=== PATIENT | male | born 1965 | race Caucasian/White ===

== ENCOUNTER 2017-04-23 17:12 | Emergency (ER) | payer OTHER ==
[~2017-04-23] VITALS: Ht 190.5 cm; Wt 108.9 kg
[~2017-04-23 17:12] MED LIST: CIPR500 PO; Esgic Tablet1 EACH PO; Flagyl500 MG PO; LISI20 PO
[2017-04-23 17:40] LABS: BASOPHILS ABSOLUTE AUTO 0.06 K/mm3 (0.00-0.23); BASOPHILS PERCENT AUTO 1 % (0-2); EOSINOPHILS ABSOLUTE AUTO 0.57 K/mm3 (0.00-0.68); EOSINOPHILS PERCENT AUTO 7 % (0-6); Hematocrit 47.4 % (37.0-53.0); Hemoglobin 17.1 g/dL (13.5-17.5); IMMATURE GRAN ABSOLUTE AUTO 0.04 K/mm3 (0.00-0.10); IMMATURE GRAN PERCENT AUTO 1 % (0-1); LYMPHOCYTES PERCENT AUTO 31 % (21-46); MONOCYTES PERCENT AUTO 7 % (4-13); Mean Corpuscular HGB 33.5 pg (26.0-34.0); Mean Corpuscular HGB Conc 36.1 g/dL (31.5-36.5); Mean Corpuscular Volume 93 fL (80-100); Mean Platelet Volume 9.4 fL (9.1-12.4); NEUTROPHILS ABSOLUTE AUTO 4.45 K/mm3 (1.96-9.15); NEUTROPHILS PERCENT AUTO 53 % (41-73); Platelet Count 198 K/mm3 (150-400); RDW Coefficient Variation 12.6 % (11.7-14.2); RDW Standard Deviation 43.1 fL (35.1-46.3); White Blood Cell Count 8.32 K/mm3 (4.00-11.30)
[2017-04-23 18:00] LABS: Alanine Aminotransfer (ALT/SGP 32 U/L (12-78); Albumin, Blood 3.9 g/dL (3.4-5.0); Alk Phos 71 U/L (50-136); Anion Gap 9 mmol/L (6-16); Aspartate Aminotrans (AST/SGOT 24 U/L (12-37); Bilirubin, Total 1.1 mg/dL (0.1-1.0); Blood Urea Nitrogen 19 mg/dL (8-24); CO2, Blood 23 mmol/L (21-32); Calcium, Blood 9.2 mg/dL (8.5-10.1); Chloride, Blood 106 mmol/L (98-108); Creatinine, Blood 1.19 mg/dL (0.60-1.20); Globulin, Blood 3.8 g/dL (2.2-4.0); Glomerular Filtration Rate >60 (60-); Glucose, Blood 90 mg/dL (70-99); Potassium, Blood 3.8 mmol/L (3.5-5.5); Sodium, Blood 138 mmol/L (136-145); Total Protein, Blood 7.7 g/dL (6.4-8.2)
[2017-04-23 18:01] LABS: Prothrombin Time Results 10.4 Sec (9.7-11.5)
[2017-04-23 18:04] LABS: Ethanol (Alcohol), Blood, Med <3 mg/dL; Magnesium, Blood 2.2 mg/dL (1.6-2.4)
== END 2017-04-23 20:10 | disposition home or self-care (01) ==
LOC: ER 17:12
PROVIDERS: Emergency Medicine
DX: S00.83XA Contusion of other part of head, initial encounter (principal); R07.89 Other chest pain; I10 Essential (primary) hypertension; Z79.899 Other long term (current) drug therapy; V49.3XXA Car occupant (driver) (passenger) injured in unspecified nontraffic accident, initial encounter
CPT/HCPCS: 70450; 71045; 71260; 72125; 74177; 80053; 83735; 85025; 85610; 86850; 86900; 86901; 93005; 93010; 96374; 96376; 99284; G0480; J3010; Q9967

== ENCOUNTER → 2017-12-06 | Outpatient (CLI) | payer OTHER ==
[2017-12-06 12:41] LABS: BASOPHILS ABSOLUTE AUTO 0.04 K/mm3 (0.00-0.23); BASOPHILS PERCENT AUTO 1 % (0-2); EOSINOPHILS ABSOLUTE AUTO 0.22 K/mm3 (0.00-0.68); EOSINOPHILS PERCENT AUTO 3 % (0-6); Hemoglobin 12.8 g/dL (13.5-17.5); IMMATURE GRAN ABSOLUTE AUTO 0.03 K/mm3 (0.00-0.10); IMMATURE GRAN PERCENT AUTO 1 % (0-1); LYMPHOCYTES ABSOLUTE AUTO 1.24 K/mm3 (0.84-5.20); LYMPHOCYTES PERCENT AUTO 19 % (21-46); MONOCYTES ABSOLUTE AUTO 0.45 K/mm3 (0.16-1.47); MONOCYTES PERCENT AUTO 7 % (4-13); Mean Corpuscular HGB 30.4 pg (26.0-34.0); Mean Corpuscular Volume 95 fL (80-100); Mean Platelet Volume 9.1 fL (9.1-12.4); NEUTROPHILS PERCENT AUTO 69 % (41-73); Platelet Count 395 K/mm3 (150-400); RDW Coefficient Variation 12.2 % (11.7-14.2); RDW Standard Deviation 42.6 fL (35.1-46.3); Red Blood Cell Count 4.21 M/mm3 (4.30-5.90); White Blood Cell Count 6.38 K/mm3 (4.00-11.30)
[2017-12-06 13:04] LABS: Alanine Aminotransfer (ALT/SGP 37 U/L (12-78); Albumin/Globulin Ratio 0.7 (0.8-1.8); Alk Phos 111 U/L (50-136); Anion Gap 8 mmol/L (6-16); Aspartate Aminotrans (AST/SGOT 30 U/L (12-37); Bilirubin, Total 0.5 mg/dL (0.1-1.0); Blood Urea Nitrogen 17 mg/dL (8-24); CO2, Blood 28 mmol/L (21-32); Calcium, Blood 9.2 mg/dL (8.5-10.1); Chloride, Blood 103 mmol/L (98-108); Creatinine, Blood 0.81 mg/dL (0.60-1.20); Globulin, Blood 4.1 g/dL (2.2-4.0); Glomerular Filtration Rate >60 (60-); Glucose, Blood 98 mg/dL (70-99); Potassium, Blood 3.9 mmol/L (3.5-5.5); Sodium, Blood 139 mmol/L (136-145); Total Protein, Blood 7.1 g/dL (6.4-8.2)
== END ==
LOC: LAB 12:17 → LAB SHORT 12:17
PROVIDERS: Physician Assistant
DX: R60.9 Edema, unspecified (principal)
CPT/HCPCS: 80053; 85025

== ENCOUNTER 2018-10-10 09:23 | Day surgery (SDC) | payer OTHER ==
[~2018-10-10] VITALS: Ht 177.8 cm; Wt 104.0 kg
[~2018-10-10 09:23] MED LIST changes: +ACET500 PO; +BACL10 PO; +GABA600 PO
--- NOTE | 2018-10-10 10:03 | NUR ---
PT ADMITTED TO [facility]. AGREES WITH PLANNED PROCEDURE. TOLERATED BOWEL PREP AND STATES HAVING BRIGHT RED BLOOD RED THIS AM.
--- NOTE | 2018-10-10 10:07 | NUR ---
LUNG SOUNDS CLEAR.
--- NOTE | 2018-10-10 10:21 | NUR ---
10/10/18 [email or web address] Megan Acuna History, Chart, Medications and Allergies reviewed before start of procedure. Patient confirms NPO status and agrees with scheduled surgery. PATIENT DETERMINED TO BE ASA APPROPRIATE FOR PROPOFOL SEDATION PRIOR TO START OF PROCEDURE BY DR. ARZATE. 3-LEAD EKG REVIEWED WITH PHYSICIAN PRIOR TO START OF PROCEDURE. MONITOR INTACT WITH CONTINUOUS PULSE OXIMETRY AND INTERMITTENT BP.
--- NOTE | 2018-10-10 10:47 | NUR ---
PT TO DURAN. CORI, WAKES TO VOICE. STATES MILF ABD PAIN. ADVISED TO PASS AIR IF ABLE.
--- NOTE | 2018-10-10 11:04 | NUR ---
WRITTEN AND VERBAL D/C INSTUCTIONS GIVEN TO PT WITH STATED UNDERSTANDING.
== END 2018-10-10 22:37 | disposition home or self-care (01) ==
LOC: ORSCMMR 09:23 → ORD 10:30 → ORSCMMR 10:30
PROVIDERS: Internal Medicine Gastroenterology
PROC: 0DJD8ZZ Inspection of Lower Intestinal Tract, Via Natural or Artificial Opening Endoscopic (ICD-10-PCS; principal; 2018-10-10 10:30)
DX: K62.5 Hemorrhage of anus and rectum (principal); K57.30 Diverticulosis of large intestine without perforation or abscess without bleeding; Z79.899 Other long term (current) drug therapy
CPT/HCPCS: 88300; J2704; J7120

== ENCOUNTER 2018-11-08 06:19 | Day surgery (SDC) | payer OTHER ==
[~2018-11-08] VITALS: Ht 177.8 cm; Wt 97.7 kg
[2018-11-08] MEDS ORDERED: Prinivil10 MG PO (06:44)
[2018-11-08] MEDS ORDERED: CLARITIN10 MG PO (06:45)
--- NOTE | 2018-11-08 08:20 | NUR ---
11/08/18 0820 Salvatore Lyn A RASH NOTED ON PT'S LEFT WRIST BEFORE PREP. SKIN INTACT.
--- NOTE | 2018-11-08 09:36 | NUR ---
11/08/18 0936 Genia Mcgregor PT ABLE TO SQUEEZE BOTH HANDS. PT TAKES DEEP BREATHS WHEN PROMPTED. PT OPENS EYES, MOANS TO VOICE COMMANDS. JAW THRUST PRN ON ARRIVAL TO PACU. STILL REQUIRING SUPPLEMENTAL OXYGEN.
--- NOTE | 2018-11-08 10:13 | NUR ---
11/08/18 1013 Genia Mcgregor 3 PERSON TRANSFER INTO RECLINER WITH GAIT BELT. AFTER TRANSFER, PT C/O NAUSEA. PT GIVEN ZOFRAN PER ORDERS. PT STATES "IT HELPED." PT C/O 8/10 PAIN IN LEFT SHOULDER. PT MEDICATED WITH FENTANYL PER ORDERS IN SDU. WILL MEDICATE WITH PO MEDS ONCE PT EATS CRACKERS. TOLERATING PO FLUIDS WELL. GIRLFIRIEND AND DAUGHTER AT BEDSIDE. POLAR PACK AND ELEVATION IMPLEMENTED.
== END 2018-11-08 11:14 | disposition home or self-care (01) ==
LOC: ORSCSDS 06:19
PROVIDERS: Orthopaedic Surgery
PROC: 0RNK4ZZ Release Left Shoulder Joint, Percutaneous Endoscopic Approach (ICD-10-PCS; principal; 2018-11-08 07:30)
PROC: 0PBB4ZZ Excision of Left Clavicle, Percutaneous Endoscopic Approach (ICD-10-PCS; principal; 2018-11-08 07:30)
PROC: 0LQ24ZZ Repair Left Shoulder Tendon, Percutaneous Endoscopic Approach (ICD-10-PCS; principal; 2018-11-08 07:30)
DX: M75.112 Incomplete rotator cuff tear or rupture of left shoulder, not specified as traumatic (principal); M75.42 Impingement syndrome of left shoulder; M19.012 Primary osteoarthritis, left shoulder; G82.20 Paraplegia, unspecified; N31.9 Neuromuscular dysfunction of bladder, unspecified; Z79.899 Other long term (current) drug therapy; Z87.891 Personal history of nicotine dependence
CPT/HCPCS: A9270-GY; C1713; J0171; J0690; J1100; J1885; J2250; J2370; J2405; J2704; J2795; J3010; J7120

== ENCOUNTER → 2018-12-05 | Outpatient (CLI) | payer OTHER ==
[~2018-12-05] MED LIST changes: +CLARITIN10 MG PO; +MINO50 PO; +NAPR220 PO; +OXYC5 PO; +Percocet 5-3251 EACH PO; +Prinivil10 MG PO
[2018-12-05 15:32] LABS: Automated BF RBC Count 1.711 M/mm3 (0-0); Automated BF WBC Count 2.515 K/mm3 (0-999); Body Fluid WBC Count 2515 /mm3 (0-999); RBC Count, Body Fluid 1711000 /mm3 (0-0)
[2018-12-05 15:37] LABS: Body Fluid Crystals NEG (NEGATIVE)
[2018-12-05 17:06] LABS: Appearance, Body Fluid Bloody (Clear); Color, Body Fluid Red (None-Yellow); Total Cell Count, Body Fluid 100
== END | disposition home or self-care (01) ==
LOC: LAB 15:05 → LAB SHORT 15:05
PROVIDERS: Orthopaedic Surgery
DX: M25.512 Pain in left shoulder (principal)
CPT/HCPCS: 87070; 87075; 87076; 87205; 89051; 89060

== ENCOUNTER 2018-12-11 14:15 | Emergency (ER) | payer OTHER ==
[~2018-12-11] VITALS: Ht 170.2 cm; Wt 102.1 kg
[~2018-12-11 14:15] MED LIST changes: -MINO50 PO; -NAPR220 PO; -OXYC5 PO; -Percocet 5-3251 EACH PO
[2018-12-11] MEDS ORDERED: Percocet 5-3251 EACH PO ×2 (14:51→14:53)
== END 2018-12-11 15:47 | disposition home or self-care (01) ==
LOC: ER 14:15
DX: S40.012A Contusion of left shoulder, initial encounter (principal); L08.9 Local infection of the skin and subcutaneous tissue, unspecified; X58.XXXA Exposure to other specified factors, initial encounter; Z88.5 Allergy status to narcotic agent; Z88.8 Allergy status to other drugs, medicaments and biological substances; Z79.899 Other long term (current) drug therapy
CPT/HCPCS: 96365; 96375; 99281-25; 99282-25; J0171; J0694; J3010

== ENCOUNTER 2018-12-12 03:07 | Inpatient (IN) | payer OTHER ==
[~2018-12-12] VITALS: Ht 170.2 cm; Wt 102.1 kg
[~2018-12-12 03:07] MED LIST changes: +Percocet 5-3251 EACH PO
[2018-12-12 03:21] LABS: BASOPHILS PERCENT AUTO 2 % (0-2); EOSINOPHILS ABSOLUTE AUTO 0.44 K/mm3 (0.00-0.68); EOSINOPHILS PERCENT AUTO 6 % (0-6); Hematocrit 49.2 % (37.0-53.0); Hemoglobin 16.8 g/dL (13.5-17.5); IMMATURE GRAN ABSOLUTE AUTO 0.04 K/mm3 (0.00-0.10); IMMATURE GRAN PERCENT AUTO 1 % (0-1); LYMPHOCYTES ABSOLUTE AUTO 2.09 K/mm3 (0.84-5.20); LYMPHOCYTES PERCENT AUTO 30 % (21-46); MONOCYTES ABSOLUTE AUTO 0.43 K/mm3 (0.16-1.47); MONOCYTES PERCENT AUTO 6 % (4-13); Mean Corpuscular HGB 33.9 pg (26.0-34.0); Mean Corpuscular HGB Conc 34.1 g/dL (31.5-36.5); Mean Corpuscular Volume 99 fL (80-100); Mean Platelet Volume 8.8 fL (9.1-12.4); NEUTROPHILS ABSOLUTE AUTO 3.78 K/mm3 (1.96-9.15); NEUTROPHILS PERCENT AUTO 55 % (41-73); Platelet Count 215 K/mm3 (150-400); RDW Coefficient Variation 12.2 % (11.7-14.2); RDW Standard Deviation 45.1 fL (35.1-46.3); Red Blood Cell Count 4.95 M/mm3 (4.30-5.90); White Blood Cell Count 6.88 K/mm3 (4.00-11.30)
[2018-12-12 03:36] LABS: International Normalized Ratio 0.92; Prothrombin Time Results 9.8 Sec (9.7-11.5)
[2018-12-12 03:43] LABS: Alanine Aminotransfer (ALT/SGP 28 U/L (12-78); Albumin, Blood 3.6 g/dL (3.4-5.0); Albumin/Globulin Ratio 0.9 (0.8-1.8); Alk Phos 79 U/L (50-136); Anion Gap 6 mmol/L (6-16); Aspartate Aminotrans (AST/SGOT 17 U/L (12-37); Bilirubin, Total 0.7 mg/dL (0.1-1.0); Blood Urea Nitrogen 21 mg/dL (8-24); CO2, Blood 28 mmol/L (21-32); Calcium, Blood 8.9 mg/dL (8.5-10.1); Chloride, Blood 107 mmol/L (98-108); Creatinine, Blood 0.88 mg/dL (0.60-1.20); Globulin, Blood 3.8 g/dL (2.2-4.0); Glomerular Filtration Rate >60 (60-); Glucose, Blood 89 mg/dL (70-99); Magnesium, Blood 2.3 mg/dL (1.6-2.4); Potassium, Blood 4.2 mmol/L (3.5-5.5); Sodium, Blood 141 mmol/L (136-145); Total Protein, Blood 7.4 g/dL (6.4-8.2)
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
--- NOTE | 2018-12-12 12:23 | NUR ---
PATIENT SELF STRAIGHT CATHING PRESURGICALLY.
--- NOTE | 2018-12-12 12:37 | NUR ---
PT LEFT ROOM TO GO TO OR AT 1147
--- NOTE | 2018-12-12 14:57 | NUR ---
12/12/18 1457 Praful Rucker PT ON SCHEDULED ANTIBIOTICS AND RECIEVED PRIOR TO ARRIVAL TO OR.
--- NOTE | 2018-12-12 17:30 | NUR ---
SHIFT SUMMARY PT A&OX4, VSS, S/P I&D RIGHT SHOULDER, 2 BULKY DRESSINGS CDI. PAIN MANAGED PER EMAR; GIVEN WITH BENADRYL TO MANAGE ITCHING. TOM PO, DENIES N&V. HX PARAPLEGIA; PT SELF CATHS. ABX INFUSING SCHEDULED. WCTM & TX PER EMAR UNTIL REPORT GIVEN TO ONCOMING NOC RN.
--- NOTE | 2018-12-13 08:10 | NUR ---
SUMMARY: POD 1 LEFT SHOULDER I&D WITH CLEANOUT BY DRL. OLSON. VSS, HYPOTENSIVE AT TIMES AND LISINOPRIL HELD. DENIES PAIN THIS SHIFT, LEFT SHOULDER BLOCK PT HAS MOVEMENT IN HAND BUT NOT ALL OF ARM WITH NUMBNESS IN SHOULDER. SELF CATH WITH GOOD URINE OUTPUT; NEW IV FOR ANTIBIOTIC INFUSIONS. TOLERATING PO WELL AND S/O REMAINS AT BEDSIDE ATTENTIVE AND HELPFUL WITH TO CARE.
--- NOTE | 2018-12-13 16:48 | NUR ---
SHIFT SUMMARY NO ACUTE CHANGES THIS SHIFT. PT REPORTS SENSATION TO LEFT SHOULDER AND IS ABLE TO MOVE IT NOW. CAP REFILL WNL AND PT DENIES N/T. DRESSINGS TO LEFT SHOULDER REMAIN CDI. PT REPORTS 2/10 PAIN WITH NO MOVEMENT BUT REPORTS 8/10 PAIN WITH MOVEMENT OF THAT LEFT SHOULDER. ATTEMPTED ORAL PAIN MEDICATION AND PT DENIES EFFECTIVENESS. PT IS ALSO HESISTANT TO TAKE NARCOTICS AT BASELINE. PLANNING TO CALL DR. OLSON TO GET ORDERS CHANGED. PT SELF CATHS AT BASELINE AND HAS OWN CATH SUPPLIES. PT ALSO BROUGHT IN PERSONAL W/C AND SLIDER BOARD TO GET OOB. PHYSICAL THERAPY EVAL CURRENTLY IN PROGRESS FOR ROM AND STRETCHING TO BLE R/T TO PARAPLEGIA. PT SIG OTHER AT BEDSIDE FOR SUPPORT. PT USES CALL LIGHT APPROPRIATELY.
--- NOTE | 2018-12-14 05:44 | NUR ---
SHIFT SUMMARY: PT POD #2 FOR I&D OF LEFT SHOULDER. DRESSINGS TO SHOULDER CDI. PAIN MANAGED WITH 2 OXY PER EMAR. GIVEN 25MCG OF FENTANYL ONCE. PT ALSO GIVEN ICE PACK. PT REPORTS ITCHINESS AFTER PAIN MEDICATION. GIVEN BENADRYL PER EMAR. SALINE LOCKED EXCEPT FOR ABX. PT TOM REG DIET. DENIES N/V. PT SELF CATHING WITH OWN SUPPLIES. ADEQUATE URINE OUTPUT. URINE CLEAR AND YELLOW. PT TRANFERED FROM BED TO WHEELCHAIR USING SLIDER BOARD. MODERATE 2 PERSON ASSIST. S/O AT BEDSIDE AND IS ACTIVE IN CARE.
--- NOTE | 2018-12-14 07:34 | NUR ---
pt req some iv pain meds for breakthru pain 11/26 to shoulder pt also re to see the dr bello gardiner today has questions will call the office when open also ok pt to take home sahara
--- NOTE | 2018-12-14 09:25 | NUR ---
PT TRANSPORTED TO DAY SURG VIA [facility]
--- NOTE | 2018-12-14 12:13 | NUR ---
dr gonzales by to see pt
[2018-12-14] MEDS ORDERED: MINO50 PO (12:20)
[2018-12-14] MEDS ORDERED: OXYC5 PO (12:21)
[2018-12-14] MEDS ORDERED: NAPR220 PO (12:21)
--- NOTE | 2018-12-14 14:17 | NUR ---
pt waiting for his
--- NOTE | 2018-12-14 15:12 | NUR ---
discharge instructions reviewed with pt and supplies given for dressing wc to car with
== END 2018-12-14 18:00 | disposition home or self-care (01) | DRG 863 ==
LOC: ER 03:07 → SURS 04:59 → ER 04:59 → SURS 05:00
PROVIDERS: Emergency Medicine; Orthopaedic Surgery; ADMIT Orthopaedic Surgery
PROC: 0R9K4ZX Drainage of Left Shoulder Joint, Percutaneous Endoscopic Approach, Diagnostic (ICD-10-PCS; principal; 2018-12-12 14:00)
PROC: 3E1U38Z Irrigation of Joints using Irrigating Substance, Percutaneous Approach (ICD-10-PCS; 2018-12-12 14:00)
DX: T81.49XA Infection following a procedure, other surgical site, initial encounter (principal); G82.20 Paraplegia, unspecified; Z90.49 Acquired absence of other specified parts of digestive tract; F17.290 Nicotine dependence, other tobacco product, uncomplicated; B96.89 Other specified bacterial agents as the cause of diseases classified elsewhere
CPT/HCPCS: 36415; 80053; 83605; 83735; 84145; 85025; 85610; 85651; 85730; 86140; 87040; 87070; 87071; 87075; 87077; 87186; 87205; 93005; 93010; 96365; 96375; 97110; 97162; 99284-25; J0171; J0694; J1170; J1200; J1885; J2370; J2405; J2540; J2704; J3010; J7030; J7120

== ENCOUNTER → 2019-06-20 | Outpatient (CLI) | payer OTHER ==
[~2019-06-20] MED LIST changes: +MINO50 PO; +NAPR220 PO; +OXYC5 PO
== END | disposition home or self-care (01) ==
LOC: LAB SHORT 14:17 → LAB 14:17
DX: R30.0 Dysuria (principal)
CPT/HCPCS: 87077; 87086; 87186

== ENCOUNTER → 2019-06-29 | Outpatient (CLI) | payer OTHER ==
[2019-06-29 15:25] LABS: Source, Urine Catheter
[2019-06-29 17:13] LABS: Bilirubin, Urine Neg (Neg); Blood, Urine Neg (Neg); Glucose Qualitative, Urine Neg (Neg); Ketones, Urine Neg (Neg); Leukocyte Esterase, Urine Neg (Neg); Nitrite, Urine Neg (Neg); Protein, Urine Neg (Neg); Urobilinogen, Urine NORM (Normal)
[2019-06-29 17:21] LABS: Appearance, Urine Clear (Clear); Color, Urine Yellow (P-Yellow)
== END | disposition home or self-care (01) ==
LOC: LAB 15:21 → LAB SHORT 15:21 → LAB FUT 06-27 17:45 → EDSTATUS 06-27 17:45
PROVIDERS: Urology
DX: N39.0 Urinary tract infection, site not specified (principal)
CPT/HCPCS: 81003; 87086

== ENCOUNTER 2019-10-27 22:40 | Emergency (ER) | payer OTHER ==
[~2019-10-27] VITALS: Ht 177.8 cm; Wt 108.9 kg
[~2019-10-27 22:40] MED LIST changes: +BACL10; +Loratadine10 MG; +OMEP20ER; +Oxybutynin Chlo15 MG PO
[2019-10-27 23:21] LABS: BASOPHILS ABSOLUTE AUTO 0.13 K/mm3 (0.00-0.23); BASOPHILS PERCENT AUTO 2 % (0-2); EOSINOPHILS ABSOLUTE AUTO 0.68 K/mm3 (0.00-0.68); EOSINOPHILS PERCENT AUTO 8 % (0-6); Hematocrit 51.2 % (37.0-53.0); Hemoglobin 17.1 g/dL (13.5-17.5); IMMATURE GRAN ABSOLUTE AUTO 0.04 K/mm3 (0.00-0.10); IMMATURE GRAN PERCENT AUTO 0 % (0-1); LYMPHOCYTES ABSOLUTE AUTO 2.22 K/mm3 (0.84-5.20); LYMPHOCYTES PERCENT AUTO 25 % (21-46); MONOCYTES ABSOLUTE AUTO 0.62 K/mm3 (0.16-1.47); MONOCYTES PERCENT AUTO 7 % (4-13); Mean Corpuscular HGB 31.7 pg (26.0-34.0); Mean Corpuscular HGB Conc 33.4 g/dL (31.5-36.5); Mean Corpuscular Volume 95 fL (80-100); Mean Platelet Volume 9.1 fL (9.1-12.4); NEUTROPHILS ABSOLUTE AUTO 5.21 K/mm3 (1.96-9.15); NEUTROPHILS PERCENT AUTO 59 % (41-73); Platelet Count 241 K/mm3 (150-400); RDW Coefficient Variation 12.6 % (11.7-14.2); RDW Standard Deviation 44.3 fL (35.1-46.3); Red Blood Cell Count 5.39 M/mm3 (4.30-5.90)
[2019-10-27 23:40] LABS: Alanine Aminotransfer (ALT/SGP 34 U/L (12-78); Albumin, Blood 3.7 g/dL (3.4-5.0); Albumin/Globulin Ratio 0.9 (0.8-1.8); Alk Phos 79 U/L (50-136); Anion Gap 6 mmol/L (6-16); Aspartate Aminotrans (AST/SGOT 18 U/L (12-37); Bilirubin, Total 0.6 mg/dL (0.1-1.0); Blood Urea Nitrogen 21 mg/dL (8-24); Bun/Creatinine Ratio 18.3 (12.0-20.0); CO2, Blood 26 mmol/L (21-32); Calcium, Blood 8.8 mg/dL (8.5-10.1); Chloride, Blood 108 mmol/L (98-108); Creatinine, Blood 1.15 mg/dL (0.60-1.20); Glomerular Filtration Rate >60 (60-); Glucose, Blood 119 mg/dL (70-99); Potassium, Blood 3.9 mmol/L (3.5-5.5); Sodium, Blood 140 mmol/L (136-145); Total Protein, Blood 7.7 g/dL (6.4-8.2)
[2019-10-27] MEDS ORDERED: Bactrim Ds Tab1 EACH PO (23:48)
== END 2019-10-28 | disposition home or self-care (01) ==
LOC: ER 22:40
PROVIDERS: Emergency Medicine
DX: L03.115 Cellulitis of right lower limb (principal)
CPT/HCPCS: 36415; 80053; 85025; 99283; A9270-GY

== ENCOUNTER 2020-03-07 18:25 | Inpatient (IN) | payer OTHER ==
[~2020-03-07] VITALS: Ht 177.8 cm; Wt 109.7 kg
[~2020-03-07 18:25] MED LIST changes: -BACL10; -BACL10 PO; +BACLOFEN5 M1 PO; +Bactrim Ds Tab1 EACH PO; -OMEP20ER; +OMEP20ER PO; -Prinivil10 MG PO
[2020-03-07 19:15] LABS: BASOPHILS PERCENT AUTO 1 % (0-2); EOSINOPHILS ABSOLUTE AUTO 0.69 K/mm3 (0.00-0.68); EOSINOPHILS PERCENT AUTO 4 % (0-6); Hematocrit 48.7 % (37.0-53.0); Hemoglobin 16.5 g/dL (13.5-17.5); IMMATURE GRAN ABSOLUTE AUTO 0.11 K/mm3 (0.00-0.10); IMMATURE GRAN PERCENT AUTO 1 % (0-1); LYMPHOCYTES ABSOLUTE AUTO 1.35 K/mm3 (0.84-5.20); LYMPHOCYTES PERCENT AUTO 8 % (21-46); MONOCYTES ABSOLUTE AUTO 0.68 K/mm3 (0.16-1.47); MONOCYTES PERCENT AUTO 4 % (4-13); Mean Corpuscular HGB Conc 33.9 g/dL (31.5-36.5); Mean Corpuscular Volume 94 fL (80-100); Mean Platelet Volume 8.7 fL (9.1-12.4); NEUTROPHILS ABSOLUTE AUTO 14.03 K/mm3 (1.96-9.15); NEUTROPHILS PERCENT AUTO 83 % (41-73); Platelet Count 282 K/mm3 (150-400); RDW Coefficient Variation 11.8 % (11.7-14.2); RDW Standard Deviation 41.1 fL (35.1-46.3); Red Blood Cell Count 5.16 M/mm3 (4.30-5.90); White Blood Cell Count 16.96 K/mm3 (4.00-11.30)
[2020-03-07 19:50] LABS: Alanine Aminotransfer (ALT/SGP 25 U/L (12-78); Albumin, Blood 3.6 g/dL (3.4-5.0); Albumin/Globulin Ratio 0.8 (0.8-1.8); Alk Phos 88 U/L (50-136); Anion Gap 4 mmol/L (6-16); Aspartate Aminotrans (AST/SGOT 11 U/L (12-37); Bilirubin, Total 1.2 mg/dL (0.1-1.0); Blood Urea Nitrogen 11 mg/dL (8-24); Bun/Creatinine Ratio 9.4 (12.0-20.0); CO2, Blood 27 mmol/L (21-32); Chloride, Blood 105 mmol/L (98-108); Creatinine, Blood 1.17 mg/dL (0.60-1.20); Globulin, Blood 4.5 g/dL (2.2-4.0); Glomerular Filtration Rate >60 (60-); Glucose, Blood 86 mg/dL (70-99); Potassium, Blood 3.9 mmol/L (3.5-5.5); Sodium, Blood 136 mmol/L (136-145); Total Protein, Blood 8.1 g/dL (6.4-8.2)
[2020-03-07 21:40] LABS: Source, Urine Catheter
[2020-03-07 21:53] LABS: Bilirubin, Urine Neg (Neg); Blood, Urine Neg (Neg); Glucose Qualitative, Urine Neg (Neg); Ketones, Urine Neg (Neg); Leukocyte Esterase, Urine 1+ (Neg); Nitrite, Urine Neg (Neg); Protein, Urine Neg (Neg); Urobilinogen, Urine NORM (Normal)
[2020-03-07 22:05] LABS: Appearance, Urine Clear (Clear); Color, Urine Yellow (P-Yellow)
[2020-03-07 22:06] LABS: Bacteria Not Seen /hpf; Red Blood Cells, Urine Not Seen /hpf (0-2); Squamous Epithelial Cells Not Seen /hpf (Few); White Blood Cells, Urine 0-2 /hpf (0-5)
[2020-03-07] MEDS ORDERED: AUGMENTIN 500-1 EACH PO (23:13)
--- NOTE | 2020-03-08 01:34 | NUR ---
RECEIVED REPORT FROM CHELSEA MYRICK RN. PT TRANSPORTED VIA W/C TO MEDICAL FLOOR, SELF-TRANSFERRED TO BED W/O DIFFICULTY. PT IN NO ACUTE DISTRESS, PENDING COVID TEST RESULT AT THIS TIME. PT DENIES SOB, DYSPNEA, REPORTS "POUNDING PHILLIPS." WILL MEDICATE PER EMAR. PT ORIENTED TO UNIT AND SETTLED INTO ROOM. CALL LIGHT, POSSESSIONS IN REACH, BED IN LOW POSITION. TM.
[2020-03-08 02:34] LABS: Influenza A, PCR Negative (NEGATIVE); Influenza B, PCR Negative (NEGATIVE); Resp Syncytial Virus, PCR Negative (NEGATIVE); SARS-Cov-2 (COVID-19) PCR, MMC Negative (NEGATIVE)
[2020-03-08 04:37] LABS: BASOPHILS ABSOLUTE AUTO 0.07 K/mm3 (0.00-0.23); BASOPHILS PERCENT AUTO 1 % (0-2); EOSINOPHILS ABSOLUTE AUTO 0.62 K/mm3 (0.00-0.68); EOSINOPHILS PERCENT AUTO 5 % (0-6); Hematocrit 43.3 % (37.0-53.0); Hemoglobin 14.5 g/dL (13.5-17.5); IMMATURE GRAN ABSOLUTE AUTO 0.08 K/mm3 (0.00-0.10); IMMATURE GRAN PERCENT AUTO 1 % (0-1); LYMPHOCYTES ABSOLUTE AUTO 1.83 K/mm3 (0.84-5.20); LYMPHOCYTES PERCENT AUTO 13 % (21-46); MONOCYTES ABSOLUTE AUTO 0.82 K/mm3 (0.16-1.47); MONOCYTES PERCENT AUTO 6 % (4-13); Mean Corpuscular HGB 31.5 pg (26.0-34.0); Mean Corpuscular HGB Conc 33.5 g/dL (31.5-36.5); Mean Corpuscular Volume 94 fL (80-100); Mean Platelet Volume 8.7 fL (9.1-12.4); NEUTROPHILS ABSOLUTE AUTO 10.49 K/mm3 (1.96-9.15); NEUTROPHILS PERCENT AUTO 75 % (41-73); Platelet Count 232 K/mm3 (150-400); RDW Coefficient Variation 11.9 % (11.7-14.2); RDW Standard Deviation 40.8 fL (35.1-46.3); White Blood Cell Count 13.91 K/mm3 (4.00-11.30)
[2020-03-08 05:07] LABS: Anion Gap 6 mmol/L (6-16); Blood Urea Nitrogen 10 mg/dL (8-24); Bun/Creatinine Ratio 8.8 (12.0-20.0); CO2, Blood 25 mmol/L (21-32); Calcium, Blood 8.5 mg/dL (8.5-10.1); Chloride, Blood 107 mmol/L (98-108); Creatinine, Blood 1.14 mg/dL (0.60-1.20); Glomerular Filtration Rate >60 (60-); Glucose, Blood 86 mg/dL (70-99); Potassium, Blood 3.6 mmol/L (3.5-5.5); Sodium, Blood 138 mmol/L (136-145)
--- NOTE | 2020-03-08 06:42 | NUR ---
SHIFT SUMMARY PT ASLEEP AT THIS TIME, NO S/S ACUTE DISTRESS NOTED. NO ACUTE CHANGE SINCE ARRIVAL TO MEDICAL FLOOR. VS REVIEWED, STABLE. PT REPORTS PHILLIPS IMPROVING SOME SINCE ARRIVAL. DENIES NEEDS AT THIS TIME. CALL LIGHT, POSSESSIONS IN REACH, WCTM, REPORT OFF TO ONCOMING RN.
[2020-03-08 14:46] LABS: International Normalized Ratio 1.05; Prothrombin Time Results 11.2 Sec (9.7-11.5)
[2020-03-08 16:45] LABS: Automated CSF WBC Count 0.007 K/mm3 (0-5); WBC Count, CSF 7 /mm3 (0-5)
[2020-03-08 16:58] LABS: Glucose, CSF 54 mg/dL (40-70)
[2020-03-08 17:04] LABS: RBC Count, CSF 1016 /mm3 (0-0)
[2020-03-08 17:29] LABS: Lymphocytes, CSF 29 % (40-80); Monocytes, CSF 12 % (15-45); Neutrophils, CSF 58 % (0-6)
[2020-03-08 17:30] LABS: Appearance, CSF Clear (Clear); Color, CSF No Color (No Color)
--- NOTE | 2020-03-08 19:33 | NUR ---
SHIFT SUMMARY PT AXO, PLEASANT AND COOPERATIVE WITH CARE. LOW BP NOTED THIS MORNING, DR GRAY AWARE, LISINOPRIL HELD AT THAT TIME. OTHER VSS. PT COMPLAINED OF SEVERE HEADACHE THROUGHOUT THE SHIFT. ICE PACK APPLIED AND MEDICATED PER EMAR. PT PHILLIPS PERSISTS. PT STRAIGHT CATH SELF PRN AND FREQUENTLY. IV INFILTRATED AT END OF SHIFT, CHARGE NURSE IN NOW TO RESTART IV. PT TOLERATING FULL LIQUIDS. HAS INCREASED APPETITE. PT HAD LUMBAR PUNCTURE, MRI AND CT THIS SHIFT, SEE RESULTS. PT TRANSFERS SELF. BED IN LOW POSITION, CALL LIGHT WITHIN REACH.
[2020-03-09 05:16] LABS: BASOPHILS ABSOLUTE AUTO 0.03 K/mm3 (0.00-0.23); BASOPHILS PERCENT AUTO 0 % (0-2); EOSINOPHILS PERCENT AUTO 0 % (0-6); Hematocrit 43.2 % (37.0-53.0); Hemoglobin 14.7 g/dL (13.5-17.5); IMMATURE GRAN ABSOLUTE AUTO 0.13 K/mm3 (0.00-0.10); IMMATURE GRAN PERCENT AUTO 1 % (0-1); LYMPHOCYTES ABSOLUTE AUTO 0.94 K/mm3 (0.84-5.20); LYMPHOCYTES PERCENT AUTO 5 % (21-46); MONOCYTES ABSOLUTE AUTO 0.09 K/mm3 (0.16-1.47); MONOCYTES PERCENT AUTO 1 % (4-13); Mean Corpuscular HGB 31.5 pg (26.0-34.0); Mean Corpuscular Volume 93 fL (80-100); Mean Platelet Volume 8.9 fL (9.1-12.4); NEUTROPHILS ABSOLUTE AUTO 18.65 K/mm3 (1.96-9.15); NEUTROPHILS PERCENT AUTO 94 % (41-73); Platelet Count 280 K/mm3 (150-400); RDW Coefficient Variation 11.8 % (11.7-14.2); RDW Standard Deviation 39.8 fL (35.1-46.3); Red Blood Cell Count 4.67 M/mm3 (4.30-5.90); White Blood Cell Count 19.84 K/mm3 (4.00-11.30)
[2020-03-09 05:40] LABS: Anion Gap 7 mmol/L (6-16); Blood Urea Nitrogen 11 mg/dL (8-24); Bun/Creatinine Ratio 11.4 (12.0-20.0); CO2, Blood 25 mmol/L (21-32); Calcium, Blood 8.7 mg/dL (8.5-10.1); Chloride, Blood 108 mmol/L (98-108); Creatinine, Blood 0.97 mg/dL (0.60-1.20); Glomerular Filtration Rate >60 (60-); Glucose, Blood 184 mg/dL (70-99); Potassium, Blood 4.2 mmol/L (3.5-5.5); Sodium, Blood 140 mmol/L (136-145)
--- NOTE | 2020-03-09 11:45 | NUR ---
PT ON MRI
--- NOTE | 2020-03-09 12:00 | NUR ---
PT IN THE ROOM NOW AFTER MRI
--- NOTE | 2020-03-09 16:46 | NUR ---
SHIFT SUMMARY PT ALERT ORIENTED X4.CALLS APPROPRIATELY. PT MANAGES SELF CATH. PT HAD A CRITICAL LAB VALUE OF 2.4 LACTIC ACID THIS MORNING; AND IT IS EXPECTED AND TRENDING DOWN AT THE RIGHT DIRECTION. PT IS GETTING SEVERAL ABX AND LR AT 100. PT C/O HEADACHE; MEDICATED PER EMAR. PT IS ON TELE- NSR @90S BED IS IN THE LOWEST POSITION AND CALL LIGHTS WITHIN REACH.
[2020-03-10 05:28] LABS: BASOPHILS ABSOLUTE AUTO 0.05 K/mm3 (0.00-0.23); BASOPHILS PERCENT AUTO 0 % (0-2); EOSINOPHILS PERCENT AUTO 0 % (0-6); Hematocrit 40.9 % (37.0-53.0); Hemoglobin 13.8 g/dL (13.5-17.5); IMMATURE GRAN ABSOLUTE AUTO 0.22 K/mm3 (0.00-0.10); IMMATURE GRAN PERCENT AUTO 1 % (0-1); LYMPHOCYTES ABSOLUTE AUTO 0.91 K/mm3 (0.84-5.20); LYMPHOCYTES PERCENT AUTO 3 % (21-46); MONOCYTES ABSOLUTE AUTO 0.89 K/mm3 (0.16-1.47); MONOCYTES PERCENT AUTO 3 % (4-13); Mean Corpuscular HGB 31.2 pg (26.0-34.0); Mean Corpuscular HGB Conc 33.7 g/dL (31.5-36.5); Mean Corpuscular Volume 92 fL (80-100); NEUTROPHILS ABSOLUTE AUTO 26.44 K/mm3 (1.96-9.15); NEUTROPHILS PERCENT AUTO 93 % (41-73); Platelet Count 306 K/mm3 (150-400); RDW Coefficient Variation 11.9 % (11.7-14.2); RDW Standard Deviation 40.5 fL (35.1-46.3); Red Blood Cell Count 4.43 M/mm3 (4.30-5.90); White Blood Cell Count 28.51 K/mm3 (4.00-11.30)
[2020-03-10 05:44] LABS: Anion Gap 6 mmol/L (6-16); Blood Urea Nitrogen 10 mg/dL (8-24); Bun/Creatinine Ratio 11.6 (12.0-20.0); CO2, Blood 26 mmol/L (21-32); Calcium, Blood 8.4 mg/dL (8.5-10.1); Chloride, Blood 110 mmol/L (98-108); Creatinine, Blood 0.86 mg/dL (0.60-1.20); Glomerular Filtration Rate >60 (60-); Glucose, Blood 163 mg/dL (70-99); Potassium, Blood 4.2 mmol/L (3.5-5.5); Sodium, Blood 142 mmol/L (136-145)
--- NOTE | 2020-03-10 07:10 | NUR ---
SHIFT SUMMARY: VSS. AFEB. AAOX4. PT MAKES NEEDS. KNOWN. MED X 2 FOR HEADACHE W/ SOME RELIEF. STATES HEADACHE WORSE WITH MOVEMENT AND ESPECIALLY AFTER GETTING UP AND TRANSFERRING TO AND FROM W/C. PT CONSTIPATED. PRUNE JUICE GIVEN W/ NO EFFECT. NOTE ON PT'S BOARD AND SPOKE W/ DAY SHIFT RN TO COMMUNICATE CONSTIPATION TO MD. BT HYPOACTIVE. PT SELF CATHS. IV ABT INFUSED PER ORDERS. PT REPORTING INCREASED MUSCLE SPASMS IN BLE DUE TO INCREASED IMMOBILITY IN HOSPITAL BED. BACLOFEN ADMINISTERED PER ORDERS. WILL CONT TO MONITOR.
[2020-03-10 11:51] LABS: Alanine Aminotransfer (ALT/SGP 18 U/L (12-78); Albumin, Blood 2.6 g/dL (3.4-5.0); Albumin/Globulin Ratio 0.7 (0.8-1.8); Alk Phos 59 U/L (50-136); Aspartate Aminotrans (AST/SGOT 12 U/L (12-37); Bilirubin, Direct <0.1 mg/dL (0.0-0.3); Bilirubin, Indirect Unable to Calculate mg/dL (0.1-0.7); Bilirubin, Total 0.4 mg/dL (0.1-1.0); Globulin, Blood 3.7 g/dL (2.2-4.0); Total Protein, Blood 6.3 g/dL (6.4-8.2)
--- NOTE | 2020-03-10 18:29 | NUR ---
SHIFT SUMMARY PT ALERT ORIENTED AND CALLS APPROPRIATELY. PT IS PAREPLEGIC AND MANAGES SELF CATH DUE TO NEUROGENIC BLADDER. PT C/O HEADACHE; MEDICATED PER EMAR. MORPHINE IS WORKING BETTER FOR HEADACHE PT STATED. PT HAS MODERATE CONSTIPATION PER CT; MEDICATED PER EMAR. BED IS IN THE LOWEST POSITION AND CALL LIGHTS WITHIN REACH
--- NOTE | 2020-03-11 04:21 | NUR ---
SHIFT SUMMARY: AAOX4. COMMUNICATES NEEDS. REPORTS PHILLIPS 05/29, STATES THIS IS TOLERABLE AND MUCH IMPROVED FROM WHERE IT HAD BEEN IN THE DAYS PRIOR. UP IND TO W/C. ATTEMPTS TO HAVE A BM TONIGHT UNSUCCESSFULLY. BT ACTIVE X 4. MEDS GIVEN FOR CONSTIPATION PER EMAR. DENIES N/V. IV ABT INFUSED PER ORDERS. NO ACUTE CHANGES. WILL CONT TO MONITOR.
[2020-03-11 07:39] LABS: BASOPHILS ABSOLUTE AUTO 0.03 K/mm3 (0.00-0.23); BASOPHILS PERCENT AUTO 0 % (0-2); EOSINOPHILS ABSOLUTE AUTO 0.09 K/mm3 (0.00-0.68); EOSINOPHILS PERCENT AUTO 1 % (0-6); Hematocrit 41.7 % (37.0-53.0); Hemoglobin 13.8 g/dL (13.5-17.5); IMMATURE GRAN ABSOLUTE AUTO 0.09 K/mm3 (0.00-0.10); IMMATURE GRAN PERCENT AUTO 1 % (0-1); LYMPHOCYTES ABSOLUTE AUTO 2.48 K/mm3 (0.84-5.20); LYMPHOCYTES PERCENT AUTO 23 % (21-46); MONOCYTES ABSOLUTE AUTO 0.75 K/mm3 (0.16-1.47); MONOCYTES PERCENT AUTO 7 % (4-13); Mean Corpuscular HGB 30.6 pg (26.0-34.0); Mean Corpuscular HGB Conc 33.1 g/dL (31.5-36.5); Mean Corpuscular Volume 93 fL (80-100); Mean Platelet Volume 8.8 fL (9.1-12.4); NEUTROPHILS ABSOLUTE AUTO 7.51 K/mm3 (1.96-9.15); NEUTROPHILS PERCENT AUTO 69 % (41-73); Platelet Count 279 K/mm3 (150-400); RDW Standard Deviation 41.1 fL (35.1-46.3); Red Blood Cell Count 4.51 M/mm3 (4.30-5.90); White Blood Cell Count 10.95 K/mm3 (4.00-11.30)
[2020-03-11 08:01] LABS: Alanine Aminotransfer (ALT/SGP 21 U/L (12-78); Albumin, Blood 2.5 g/dL (3.4-5.0); Albumin/Globulin Ratio 0.8 (0.8-1.8); Alk Phos 57 U/L (50-136); Anion Gap 6 mmol/L (6-16); Aspartate Aminotrans (AST/SGOT 11 U/L (12-37); Bilirubin, Total 0.3 mg/dL (0.1-1.0); Blood Urea Nitrogen 11 mg/dL (8-24); Bun/Creatinine Ratio 11.1 (12.0-20.0); CO2, Blood 26 mmol/L (21-32); Calcium, Blood 8.2 mg/dL (8.5-10.1); Chloride, Blood 110 mmol/L (98-108); Creatinine, Blood 0.99 mg/dL (0.60-1.20); Globulin, Blood 3.3 g/dL (2.2-4.0); Glomerular Filtration Rate >60 (60-); Glucose, Blood 98 mg/dL (70-99); Potassium, Blood 3.6 mmol/L (3.5-5.5); Sodium, Blood 142 mmol/L (136-145); Total Protein, Blood 5.8 g/dL (6.4-8.2)
--- NOTE | 2020-03-11 18:39 | NUR ---
PATIENT A/OX4, UP INDEPDENTLY TO W/C. SELF CATHS DUE TO NEUROGENIC BLADDER. LACTIC ACID REMAINS HIGH, DR. BECKER AWARE. PATIENT RECEIVING ACYCLOVIR TO TREAT INFECTION. TOLERATING REGULAR DIET. SKIN INTACT. POWERGLIDE TO RUE WNL, SITE DOES NOT DRAW. VSS, ON RA. REPORTS MILD PHILLIPS THROUGHOUT THE DAY, BUT REFUSED MEDICATION TO TREAT. NO BM SINCE 03/04, AWARE AND PATIENT STARTED ON BOWEL CARE. PATIENT IS REFUSING AN ENEMA, BUT DOES HAVE MIRALAX AND COLACE ORDERED. CALM AND COOPERATIVE WITH CARE, CALLS APPROPRIATELY FOR ASSISTANCE.
--- NOTE | 2020-03-11 19:15 | NUR ---
ASSUMED CARE RECEIVED REPORT FROM SPARKLE ROYAL. ASSUMED CARE OF PT. RESTING COMFORTABLY AT THIS TIME, NO S/S ACUTE DISTRESS NOTED. DENIES NEEDS AT THIS TIME, RESPS E/U. DENIES NEEDS AT THIS TIME. CALL LIGHT, POSSESSIONS IN REACH. BED IN LOW POSITION. WCTM.
--- NOTE | 2020-03-11 21:13 | NUR ---
SPOKE TO DR. URIAS REGARDING PT'S REQUEST TO REMOVE TELE FOR SHOWER. ORDERS RECEIVED. MARY LOU.
--- NOTE | 2020-03-12 04:40 | NUR ---
SHIFT SUMMARY PT ASLEEP AT THIS TIME, TRANSFERRING INDEPENDENTLY TO W/C. SHOWERED THIS EVENING, TOLERATED WELL. MEDICATED FOR C/O PHILLIPS X1, WITH EFFECTIVE RELIEF. VS REVIEWED, NO ACUTE CHANGES NOTED. PRN MIRALAX GIVEN FOR BOWEL CARE, PT REPORTING SMALL BMS. OFFERED PRUNE JUICE MIXTURE, PT DECLINED, REPORTING CONCERNS THAT HE WOULD NOT MAKE IT TO BATHROOM IN TIME. DISCUSSED OTHER OPTIONS TO PROMOTE A BM, PT STATES HE TAKES COLACE TID AT HOME. WILL INFORM DAY RN SO IT CAN BE DISCUSSED WITH PROVIDER DURING THE DAY. PT DENIES NEEDS AT THIS TIME. CALL LIGHT, POSSESSIONS IN REACH. BED IN LOW POSITION. WCTM, REPORT OFF TO ONCOMING RN.
[2020-03-12 05:32] LABS: BASOPHILS ABSOLUTE AUTO 0.11 K/mm3 (0.00-0.23); BASOPHILS PERCENT AUTO 1 % (0-2); EOSINOPHILS ABSOLUTE AUTO 0.64 K/mm3 (0.00-0.68); EOSINOPHILS PERCENT AUTO 7 % (0-6); Hematocrit 44.8 % (37.0-53.0); IMMATURE GRAN ABSOLUTE AUTO 0.17 K/mm3 (0.00-0.10); IMMATURE GRAN PERCENT AUTO 2 % (0-1); LYMPHOCYTES ABSOLUTE AUTO 2.17 K/mm3 (0.84-5.20); LYMPHOCYTES PERCENT AUTO 23 % (21-46); MONOCYTES ABSOLUTE AUTO 0.79 K/mm3 (0.16-1.47); MONOCYTES PERCENT AUTO 9 % (4-13); Mean Corpuscular HGB Conc 33.5 g/dL (31.5-36.5); Mean Corpuscular Volume 93 fL (80-100); Mean Platelet Volume 8.8 fL (9.1-12.4); NEUTROPHILS PERCENT AUTO 58 % (41-73); Platelet Count 273 K/mm3 (150-400); RDW Standard Deviation 41.3 fL (35.1-46.3); Red Blood Cell Count 4.84 M/mm3 (4.30-5.90); White Blood Cell Count 9.28 K/mm3 (4.00-11.30)
[2020-03-12 05:54] LABS: Alanine Aminotransfer (ALT/SGP 22 U/L (12-78); Albumin, Blood 2.6 g/dL (3.4-5.0); Albumin/Globulin Ratio 0.7 (0.8-1.8); Alk Phos 68 U/L (50-136); Anion Gap 5 mmol/L (6-16); Aspartate Aminotrans (AST/SGOT 10 U/L (12-37); Bilirubin, Total 0.5 mg/dL (0.1-1.0); Blood Urea Nitrogen 12 mg/dL (8-24); Bun/Creatinine Ratio 11.3 (12.0-20.0); CO2, Blood 29 mmol/L (21-32); Calcium, Blood 8.5 mg/dL (8.5-10.1); Chloride, Blood 106 mmol/L (98-108); Creatinine, Blood 1.06 mg/dL (0.60-1.20); Globulin, Blood 3.5 g/dL (2.2-4.0); Glomerular Filtration Rate >60 (60-); Glucose, Blood 82 mg/dL (70-99); Potassium, Blood 3.9 mmol/L (3.5-5.5); Sodium, Blood 140 mmol/L (136-145); Total Protein, Blood 6.1 g/dL (6.4-8.2)
--- NOTE | 2020-03-12 18:12 | NUR ---
SHIFT SUMMARY. PT REPORTS FEELING BETTER TODAY THAN YESTERDAY, STILL FEELS TIRED AND FATIGUED ALTHOUGH INDEPENDENT IN ROOM WITH W/C. PT C/O ONGOING H/A, PT REPORTS HE IS TRYING TO AVOID NARCOTICS, RECIEVED ORDER FOR TRAMODOL, PT REPORTED GOOD RELIEF WITH TRAMADOL. PT DENIES SOB, N/V. PT REPORTS NECK AND BACK ARE LESS STIFF THAN PREVIOUS DAYS. CARE MANAGEMENT WORKING ON SETTIN UP HOME INFUSIONS. PT REPORTS THAT HE WILL REFUSE PICC LINE AND UTILIZE POWERGLIDE MIDLINE IV FOR HOME INFUSIONS. POWERGLIDE DRESSING DUE TO BE CHANGED TOMORROW.
--- NOTE | 2020-03-13 05:01 | NUR ---
POWER AND RECOVERY SUPERINTENDENT SUMMARY NO ACUTE CHANGES THIS SHIFT. PT AAOX4 AND PLEASANT. INDEPENDENT IN ROOM USING HIS WHEELCHAIR. PT ABLE TO SHOWER HIMSELF TONIGHT WITH NO TROUBLE. CONTINUES ON IV ACYCLOVIR. PT HAS RESTED MOST OF THE NIGHT WITH NO COMPLAINTS. VSS, WILL CONTINUE TO MONITOR.
[2020-03-13 10:05] LABS: BASOPHILS ABSOLUTE AUTO 0.09 K/mm3 (0.00-0.23); BASOPHILS PERCENT AUTO 1 % (0-2); EOSINOPHILS ABSOLUTE AUTO 1.32 K/mm3 (0.00-0.68); EOSINOPHILS PERCENT AUTO 11 % (0-6); Hematocrit 44.1 % (37.0-53.0); IMMATURE GRAN ABSOLUTE AUTO 0.14 K/mm3 (0.00-0.10); IMMATURE GRAN PERCENT AUTO 1 % (0-1); LYMPHOCYTES PERCENT AUTO 20 % (21-46); MONOCYTES ABSOLUTE AUTO 0.62 K/mm3 (0.16-1.47); MONOCYTES PERCENT AUTO 5 % (4-13); Mean Corpuscular HGB 31.5 pg (26.0-34.0); Mean Corpuscular Volume 93 fL (80-100); Mean Platelet Volume 9.1 fL (9.1-12.4); NEUTROPHILS ABSOLUTE AUTO 7.48 K/mm3 (1.96-9.15); NEUTROPHILS PERCENT AUTO 62 % (41-73); NRBC ABSOLUTE 0.02 K/mm3 (0.00-0.02); NRBC Auto 0.2 /100 WBC (0.0-0.2); Platelet Count 279 K/mm3 (150-400); RDW Standard Deviation 41.1 fL (35.1-46.3); Red Blood Cell Count 4.76 M/mm3 (4.30-5.90); White Blood Cell Count 12.05 K/mm3 (4.00-11.30)
[2020-03-13 10:18] LABS: Albumin, Blood 2.9 g/dL (3.4-5.0); Anion Gap 4 mmol/L (6-16); Blood Urea Nitrogen 13 mg/dL (8-24); Bun/Creatinine Ratio 12.3 (12.0-20.0); CO2, Blood 28 mmol/L (21-32); Calcium, Blood 8.5 mg/dL (8.5-10.1); Chloride, Blood 104 mmol/L (98-108); Creatinine, Blood 1.06 mg/dL (0.60-1.20); Glomerular Filtration Rate >60 (60-); Glucose, Blood 110 mg/dL (70-99); Phosphorus, Blood 3.2 mg/dL (2.5-4.9); Potassium, Blood 3.9 mmol/L (3.5-5.5); Sodium, Blood 136 mmol/L (136-145)
[2020-03-13] MEDS ORDERED: ACYCLOVIR IV (16:04)
[2020-03-13] MEDS ORDERED: BUTALB-ACETAMI1 EAC6 PO (16:05)
[2020-03-13] MEDS ORDERED: DOCU100 PO (16:06)
[2020-03-13] MEDS ORDERED: TRAM50 PO (16:06)
[2020-03-13] MEDS ORDERED: MIRALAX17 GM PO (16:06)
--- NOTE | 2020-03-13 17:02 | NUR ---
PATIENT DOING WELL TODAY AND WILL DC AFTER 2200 DOSE OF ACYCLOVIR. PATIENT DID NOT WANT A PICC LINE SO WILL BE SENT HOME WITH HIS POWERGLIDE. POWERGLIDE DRESSING CHANGED THIS EVENING. PATIENT WILL FOLLOW UP WITH [facility] AND ER TOMORROW TO GET HIS OUTPATIENT ABX. PHILLIPS IS MORE INTERMITTENT AND HAS IMPROVED TODAY. SCRIPTS FAXED TO [facility] FOR FIORECET AND TRAMADOL GIVEN TO PATIENT. FAMILY WILL BE HERE TONIGHT TO GET PATIENT.
--- NOTE | 2020-03-13 22:41 | NUR ---
DISCHARGE PT FINISHED IV ACYCLOVIR INFUSION. FAMILY IN TO ASSIST PT WITH BELONGINGS. PT DISCHARGED AND ESCORTED TO VEHICLE BY FAMILY AND MELYSSA ROMO AT 2239. ALL BELONGINGS SENT WITH PT AND DISCHARGE PAPERWORK GIVEN TO . PT LEFT WITH [facility] AND WILL COME TO [facility] TOMORROW FOR ABX INFUSIONS.
[2020-03-14 03:09] LABS: HSV-1 DNA Negative (Negative); HSV-2 DNA Negative (Negative)
== END 2020-03-13 22:40 | disposition home or self-care (01) | DRG 871 ==
LOC: ER 18:25 → MEDS 18:26
PROVIDERS: Emergency Medicine; Family Medicine; Internal Medicine; Physician Assistant; ADMIT Family Medicine
PROC: 009U3ZX Drainage of Spinal Canal, Percutaneous Approach, Diagnostic (ICD-10-PCS; principal; 2020-03-08)
PROC: B01B1ZZ Fluoroscopy of Spinal Cord using Low Osmolar Contrast (ICD-10-PCS; 2020-03-08)
DX: A41.89 Other specified sepsis (principal); B00.4 Herpesviral encephalitis; G82.20 Paraplegia, unspecified; E87.2 Acidosis; R65.20 Severe sepsis without septic shock; Z20.828 Contact with and (suspected) exposure to other viral communicable diseases; Z90.49 Acquired absence of other specified parts of digestive tract; K21.9 Gastro-esophageal reflux disease without esophagitis; R33.9 Retention of urine, unspecified; I10 Essential (primary) hypertension; K22.2 Esophageal obstruction; N52.9 Male erectile dysfunction, unspecified; N31.9 Neuromuscular dysfunction of bladder, unspecified
CPT/HCPCS: 0241U; 36415; 70450; 70551; 70553; 74177; 77003; 80048; 80053; 80069; 80076; 81001; 82945; 83605; 83690; 84157; 85025; 85610; 85730; 86850; 86900; 86901; 87040; 87070; 87205; 87252; 87254; 87529; 89051; 93005; 93010; 96361; 96365-59; 96367; 96375; 96376; 99285-25; A9270; A9579; C1751; J0133; J0290; J0692; J0696; J1100; J1200; J1885; J2270; J2543; J3010; J3370; J7030; J7050; J7120; Q9967

== ENCOUNTER 2020-03-14 08:17 | Day surgery (SDC) | payer OTHER ==
[~2020-03-14 08:17] MED LIST changes: +ACYCLOVIR IV; +AUGMENTIN 500-1 EACH PO; +BUTALB-ACETAMI1 EAC6 PO; +DOCU100 PO; +MIRALAX17 GM PO; +TRAM50 PO
== END 2020-03-14 16:50 | disposition home or self-care (01) ==
LOC: ATC 08:17
DX: A41.9 Sepsis, unspecified organism (principal); K52.9 Noninfective gastroenteritis and colitis, unspecified; R65.20 Severe sepsis without septic shock; I10 Essential (primary) hypertension; G82.20 Paraplegia, unspecified; K21.9 Gastro-esophageal reflux disease without esophagitis; N39.0 Urinary tract infection, site not specified; Z88.5 Allergy status to narcotic agent; Z79.899 Other long term (current) drug therapy
CPT/HCPCS: 96365; J0133

== ENCOUNTER 2020-03-14 21:45 | Emergency (ER) | payer OTHER ==
[~2020-03-14] VITALS: Ht 177.8 cm; Wt 108.9 kg
== END 2020-03-15 00:35 | disposition home or self-care (01) ==
LOC: ER 21:45
DX: Z76.89 Persons encountering health services in other specified circumstances (principal); G04.90 Encephalitis and encephalomyelitis, unspecified; Z88.5 Allergy status to narcotic agent; Z88.8 Allergy status to other drugs, medicaments and biological substances; Z79.899 Other long term (current) drug therapy
CPT/HCPCS: 96365; J0133

== ENCOUNTER 2020-03-19 09:19 | Day surgery (SDC) | payer OTHER ==
[2020-03-19 13:08] LABS: BASOPHILS PERCENT AUTO 1 % (0-2); EOSINOPHILS ABSOLUTE AUTO 0.35 K/mm3 (0.00-0.68); EOSINOPHILS PERCENT AUTO 4 % (0-6); Hematocrit 45.7 % (37.0-53.0); Hemoglobin 14.8 g/dL (13.5-17.5); IMMATURE GRAN ABSOLUTE AUTO 0.07 K/mm3 (0.00-0.10); IMMATURE GRAN PERCENT AUTO 1 % (0-1); LYMPHOCYTES ABSOLUTE AUTO 1.88 K/mm3 (0.84-5.20); LYMPHOCYTES PERCENT AUTO 20 % (21-46); MONOCYTES ABSOLUTE AUTO 0.86 K/mm3 (0.16-1.47); MONOCYTES PERCENT AUTO 9 % (4-13); Mean Corpuscular HGB Conc 32.4 g/dL (31.5-36.5); Mean Corpuscular Volume 99 fL (80-100); Mean Platelet Volume 10.1 fL (9.1-12.4); NEUTROPHILS ABSOLUTE AUTO 6.17 K/mm3 (1.96-9.15); NEUTROPHILS PERCENT AUTO 66 % (41-73); Platelet Count 176 K/mm3 (150-400); RDW Coefficient Variation 13.3 % (11.7-14.2); RDW Standard Deviation 45.3 fL (35.1-46.3); Red Blood Cell Count 4.63 M/mm3 (4.30-5.90); White Blood Cell Count 9.43 K/mm3 (4.00-11.30)
== END 2020-03-19 12:00 | disposition home or self-care (01) ==
LOC: ATC 09:19
PROVIDERS: Physician Assistant
DX: B00.4 Herpesviral encephalitis (principal); I10 Essential (primary) hypertension; K21.9 Gastro-esophageal reflux disease without esophagitis; G82.20 Paraplegia, unspecified; N31.9 Neuromuscular dysfunction of bladder, unspecified; Z79.899 Other long term (current) drug therapy; Z88.5 Allergy status to narcotic agent; Z91.048 Other nonmedicinal substance allergy status
CPT/HCPCS: 36592; 85025; C1751

== ENCOUNTER 2020-07-28 10:41 | Emergency (ER) | payer OTHER ==
[~2020-07-28] VITALS: Ht 177.8 cm; Wt 113.4 kg
[2020-07-28] MEDS ORDERED: BACLOFEN5 M1 PO (11:14)
[2020-07-28] MEDS ORDERED: LORA10ER PO (11:15)
== END 2020-07-28 13:37 | disposition home or self-care (01) ==
LOC: ER 10:41
DX: S82.831A Other fracture of upper and lower end of right fibula, initial encounter for closed fracture (principal); Z88.5 Allergy status to narcotic agent; Z79.899 Other long term (current) drug therapy; W23.1XXA Caught, crushed, jammed, or pinched between stationary objects, initial encounter; Y92.89 Other specified places as the place of occurrence of the external cause; Y99.0 Civilian activity done for income or pay
CPT/HCPCS: 29515; 73590; 73620; 93971; 99284-25

== ENCOUNTER 2021-11-14 01:41 | Day surgery (SDC) | payer OTHER ==
[~2021-11-14 01:41] MED LIST changes: +LORA10ER PO
== END 2021-11-14 22:58 | disposition home or self-care (01) ==
LOC: WOUND 01:41
DX: L89.153 Pressure ulcer of sacral region, stage 3 (principal); L89.890 Pressure ulcer of other site, unstageable; L89.629 Pressure ulcer of left heel, unspecified stage; G82.22 Paraplegia, incomplete; I10 Essential (primary) hypertension; Z88.5 Allergy status to narcotic agent
CPT/HCPCS: G0463

== ENCOUNTER 2021-11-21 02:51 | Day surgery (SDC) | payer OTHER | END 2021-11-21 22:49 | disposition home or self-care (01) | LOC: WOUND 02:51 | DX: L89.153 Pressure ulcer of sacral region, stage 3 (principal); L89.890 Pressure ulcer of other site, unstageable; L89.320 Pressure ulcer of left buttock, unstageable; G82.22 Paraplegia, incomplete; I10 Essential (primary) hypertension; L89.609 Pressure ulcer of unspecified heel, unspecified stage | CPT/HCPCS: G0463 ==

== ENCOUNTER 2021-12-20 15:53 | Emergency (ER) | payer OTHER ==
[~2021-12-20] VITALS: Ht 177.8 cm; Wt 111.1 kg
== END 2021-12-20 17:40 | disposition home or self-care (01) ==
LOC: ER 15:53
DX: S62.356A Nondisplaced fracture of shaft of fifth metacarpal bone, right hand, initial encounter for closed fracture (principal); V86.59XA Driver of other special all-terrain or other off-road motor vehicle injured in nontraffic accident, initial encounter; Z88.5 Allergy status to narcotic agent; Z91.011 Allergy to milk products; Z91.048 Other nonmedicinal substance allergy status; Z79.899 Other long term (current) drug therapy
CPT/HCPCS: 73130

== ENCOUNTER → 2023-12-17 | Outpatient (CLI) | payer OTHER ==
[~2023-12-17] MED LIST changes: +AFRIN15 M6
[2023-12-17 15:37] LABS: Albumin, Blood 3.5 g/dL (3.4-5.0); Albumin/Globulin Ratio 0.9 (0.8-1.8); Bilirubin, Total 1.1 mg/dL (0.1-1.0); Calcium, Blood 9.2 mg/dL (8.5-10.1); Creatinine, Blood 1.12 mg/dL (0.60-1.20); Globulin, Blood 3.8 g/dL (2.2-4.0); Potassium, Blood 3.9 mmol/L (3.5-5.5); Total Protein, Blood 7.3 g/dL (6.4-8.2)
[2023-12-17 17:26] LABS: BASOPHILS ABSOLUTE AUTO 0.07 K/mm3 (0.00-0.23); BASOPHILS PERCENT AUTO 0 % (0-2); EOSINOPHILS ABSOLUTE AUTO 0.24 K/mm3 (0.00-0.68); EOSINOPHILS PERCENT AUTO 2 % (0-6); Hematocrit 51.9 % (37.0-53.0); Hemoglobin 16.8 g/dL (13.5-17.5); IMMATURE GRAN ABSOLUTE AUTO 0.08 K/mm3 (0.00-0.10); IMMATURE GRAN PERCENT AUTO 1 % (0-1); LYMPHOCYTES ABSOLUTE AUTO 0.88 K/mm3 (0.84-5.20); LYMPHOCYTES PERCENT AUTO 6 % (21-46); MONOCYTES ABSOLUTE AUTO 1.36 K/mm3 (0.16-1.47); MONOCYTES PERCENT AUTO 8 % (4-13); Mean Corpuscular HGB 31.1 pg (26.0-34.0); Mean Corpuscular HGB Conc 32.4 g/dL (31.5-36.5); Mean Corpuscular Volume 96 fL (80-100); Mean Platelet Volume 9.6 fL (9.1-12.4); NEUTROPHILS ABSOLUTE AUTO 13.48 K/mm3 (1.96-9.15); NEUTROPHILS PERCENT AUTO 84 % (41-73); Platelet Count 198 K/mm3 (150-400); RDW Coefficient Variation 12.8 % (11.7-14.2); RDW Standard Deviation 45.4 fL (35.1-46.3); Red Blood Cell Count 5.41 M/mm3 (4.30-5.90); White Blood Cell Count 16.11 K/mm3 (4.00-11.30)
== END ==
LOC: LAB SHORT 13:30 → LAB 13:30
PROVIDERS: Physician Assistant
DX: R50.9 Fever, unspecified (principal); N10 Acute pyelonephritis
CPT/HCPCS: 80053; 85025; 87077; 87086; 87186

== ENCOUNTER → 2023-12-20 | Outpatient (CLI) | payer OTHER ==
[2023-12-20 17:29] LABS: BASOPHILS ABSOLUTE AUTO 0.07 K/mm3 (0.00-0.23); BASOPHILS PERCENT AUTO 1 % (0-2); EOSINOPHILS PERCENT AUTO 6 % (0-6); Hemoglobin 16.8 g/dL (13.5-17.5); IMMATURE GRAN ABSOLUTE AUTO 0.04 K/mm3 (0.00-0.10); IMMATURE GRAN PERCENT AUTO 1 % (0-1); LYMPHOCYTES ABSOLUTE AUTO 1.53 K/mm3 (0.84-5.20); LYMPHOCYTES PERCENT AUTO 24 % (21-46); MONOCYTES ABSOLUTE AUTO 0.94 K/mm3 (0.16-1.47); MONOCYTES PERCENT AUTO 15 % (4-13); Mean Corpuscular HGB 31.1 pg (26.0-34.0); Mean Corpuscular HGB Conc 32.9 g/dL (31.5-36.5); Mean Corpuscular Volume 94 fL (80-100); Mean Platelet Volume 9.1 fL (9.1-12.4); NEUTROPHILS ABSOLUTE AUTO 3.35 K/mm3 (1.96-9.15); NEUTROPHILS PERCENT AUTO 53 % (41-73); Platelet Count 219 K/mm3 (150-400); RDW Coefficient Variation 12.5 % (11.7-14.2); RDW Standard Deviation 43.6 fL (35.1-46.3); Red Blood Cell Count 5.41 M/mm3 (4.30-5.90); White Blood Cell Count 6.33 K/mm3 (4.00-11.30)
[2023-12-20 17:40] LABS: Bun/Creatinine Ratio 22.3 (12.0-20.0); Calcium, Blood 8.8 mg/dL (8.5-10.1); Creatinine, Blood 0.85 mg/dL (0.60-1.20); Potassium, Blood 3.8 mmol/L (3.5-5.5)
== END | disposition home or self-care (01) ==
LOC: LAB SHORT 11:53 → LAB 11:53
PROVIDERS: Physician Assistant
DX: N10 Acute pyelonephritis (principal); R50.9 Fever, unspecified
CPT/HCPCS: 80048; 85025